=== PATIENT | male | born 1955 | race Caucasian/White ===

== ENCOUNTER 2018-10-20 14:09 | Outpatient (CLI) | payer MEDICARE ==
[2018-10-20 19:28] LABS: ALBUMIN 4.7 g/dL (3.2-5.5); ALBUMIN/GLOBULIN RATIO 1.3 (1.0-2.2); ALKALINE PHOSPHATASE 80 IU/L (42-121); ALT ALANINE AMINOTRANSFERASE 66 IU/L (10-60); AST ASPARTATE AMINOTRANSFERASE 120 IU/L (10-42); BILIRUBIN,TOTAL 1.3 mg/dL (0.2-1.0); BUN - BLOOD UREA NITROGEN 8 mg/dL (6-20); CALCIUM 9.5 mg/dL (8.5-10.3); CARBON DIOXIDE - CO2 23 mmol/L (21-32); CHLORIDE 95 mmol/L (101-111); CHOL/HDL RATIO 2.6 (<5.0); CHOLESTEROL 212 mg/dL; CREATININE 0.7 mg/dL (0.6-1.2); GFR - MDRD 113 (>89); GLUCOSE 105 mg/dL (70-100); HDL CHOLESTEROL 81 mg/dL; LDL CHOLESTEROL,CALCULATED 116 mg/dL; LDL/HDL RATIO 1.4 (<3.6); SODIUM 133 mmol/L (135-145); TOTAL PROTEIN 8.2 g/dL (6.7-8.2); VLDL CHOLESTEROL 15 mg/dL
[2018-10-20 19:46] LABS: BASOPHILS % (AUTO) 0.4 %; EOSINOPHILS % (AUTO) 0.2 %; HGB - HEMOGLOBIN 15.8 g/dL (14.0-18.0); LYMPHOCYTES # (AUTO) 1.1 10^3/uL (1.5-3.5); LYMPHOCYTES % (AUTO) 12.7 %; MEAN CORPUSCULAR HEMOGLOBIN 35.8 pg (27.0-31.0); MEAN CORPUSCULAR HGB CONC 34.3 g/dL (32.0-36.0); MEAN CORPUSCULAR VOLUME 104.1 fL (80.0-94.0); MEAN PLATELET VOLUME 11.5 fL (7.4-11.4); NEUTROPHILS # (AUTO) 6.4 10^3/uL (1.5-6.6); NEUTROPHILS % (AUTO) 74.7 %; PLT - PLATELET COUNT 122 10^3/uL (130-450); RED BLOOD COUNT 4.43 10^6/uL (4.70-6.10); RED CELL DISTRIBUTION WIDTH 13.5 % (12.0-15.0); WHITE BLOOD COUNT 8.5 x10^3/uL (4.8-10.8)
[2018-10-20 21:40] LABS: PLATELET ESTIMATE, MANUAL DECREASED (<130,000) (NORMAL); PLATELET MORPHOLOGY 1+ GIANT PLATELETS (NORMAL); RBC MORPHOLOGY (MULTIPLE) NORMAL APPEARANCE (NORMAL)
== END 2018-10-20 14:10 | disposition home or self-care (01) ==
LOC: LAB.WCP 14:09
PROVIDERS: ATTEND Family Medicine
DX: J06.9 Acute upper respiratory infection, unspecified (principal)
CPT/HCPCS: 36415; 80053; 80061; 83721; 84443; 85025; 87275; 87276

== ENCOUNTER 2019-10-02 09:23 | Outpatient (CLI) | payer MEDICARE | END 2019-10-02 09:24 | disposition critical access hospital (66) | LOC: EMS 09:23 | PROVIDERS: ATTEND Surgery | DX: S01.81XA Laceration without foreign body of other part of head, initial encounter (principal); W01.0XXA Fall on same level from slipping, tripping and stumbling without subsequent striking against object, initial encounter; Y92.524 Gas station as the place of occurrence of the external cause | CPT/HCPCS: A0425; A0429 ==

== ENCOUNTER 2019-10-02 09:48 | Emergency (ER) | payer MEDICARE ==
--- NOTE | 2019-10-02 10:04 | ED Physician Documentation ---
PD HPI Fall - Stated complaint Stated Complaint: GLF - History obtained from History obtained from: Patient - History of Present Illness Mechanism of injury: Tripped (He states he was walking over a curb and it was higher than he expected and tripped and fell forward onto his face. At home he typically has hand rails because of unsteadiness. He does not like to use a walker. He fell forward and did not have any loss of consciousness. He had a laceration on the right eyebrow. He denies other injury.) Fall distance: Standing position Where injury occurred: Street Timing - onset: Today Injury(ies) location: Face. No: Chest, Abdomen Associated symptoms: Other (Typically has unsteadiness with walking. He has also noticed swelling in his legs particularly his left leg for a couple of weeks. He has been having some feeling of abdominal distention for several weeks as well.). No: LOC, AMS, Weakness, Paresthesias Contributing factors: No: Anticoagulated Similar symptoms before: No diagnosis (Unsteadiness with gait for long-term, half a year or more) Recently seen: Not recently seen Review of Systems Constitutional: denies: Fever, Chills Nose: denies: Rhinorrhea / runny nose, Congestion Throat: denies: Sore throat Cardiac: reports: Pedal edema (both legs for months), Calf pain (left leg for 1- 2 weeks). denies: Chest pain / pressure Respiratory: reports: Dyspnea (some for months). denies: Cough GI: reports: Abdominal Pain, Abdominal Swelling (mildly for months). denies: Nausea, Vomiting, Diarrhea : denies: Dysuria Musculoskeletal: reports: Extremity swelling. denies: Neck pain, Back pain Neurologic: reports: Generalized weakness. denies: Focal weakness, Numbness, Altered mental status, Headache PD PAST MEDICAL HISTORY - Past Medical History Cardiovascular: None Respiratory: None Neuro: None Endocrine/Autoimmune: None - Past Surgical History Past Surgical History: No - Present Medications Home Medications: Ambulatory Orders Medication Instructions Recorded Confirmed Rivaroxaban [Xarelto] 15 mg PO BID #42 tablet 10/02/19 Spironolactone 25 mg PO DAILY #20 tablet 10/02/19 - Allergies Allergies/Adverse Reactions: Allergies Allergy/AdvReac Type Severity Reaction Status Date / Time No Known Drug Allergies Allergy Verified 10/02/19 10:02 - Living Situation Living Situation: reports: With spouse/s.o. Living Arrangement: reports: At home - Social History Does the pt smoke?: Yes Does the pt drink ETOH?: Yes ETOH Use: Beer (He drinks regularly at least 4-6 drinks per day. He states he does get a little shaky if he goes too late in the afternoon without anything to drink. He has not had any alcohol treatments.), Liquor Does the pt have substance abuse?: No - Family History Family history: reports: DM PD ED PE NORMAL - Vitals Vital signs reviewed: Yes - General General: Alert and oriented X 3, No acute distress, Well developed/nourished - HEENT HEENT: PERRL, EOMI, Pharynx benign, Dentition benign, Other (nonicteric). No: Atraumatic (The right supraorbital area has a 2 cm laceration full-thickness through the skin down to the fatty tissue with slightly irregular edges and no foreign body. There is no bleeding at this time.) - Neck Neck: Supple, no meningeal sign, No bony TTP (Cleared clinically by Nexus criteria.), No adenopathy - Cardiac Cardiac: RRR, No murmur - Respiratory Respiratory: Clear bilaterally - Abdomen Abdomen: Soft, Other (There is some liver enlargement by palpation. Is not tender. There is no abdominal tenderness. There is some mild distention with shifting dullness consistent with likely ascites. There is no hernia noted.). No: Normal bowel sounds (diminished) - Derm Derm: Normal color, Warm and dry - Extremities Extremities: Other (The right lower leg has a 1+ edema around the ankles in the pretibial area with good capillary refill but slightly cool color or temperature. Dorsalis pedis pulses palpable. The left leg shows moderate edema 2+ pitting with slight mottling color but still palpable dorsalis pedis pulse and capillary refill in the toes. The temperature is comfortably cool to the right. There is calf tenderness on the left and some in the popliteal area.) - Neuro Neuro: Alert and oriented X 3, fleece tier 2-12 intact, No motor deficit, No sensory deficit, Normal speech Eye Opening: Spontaneous Motor: Obeys Commands Verbal: Oriented GCS Score: 15 Results - Vitals Vitals: Vital Signs - 24 hr 10/02/19 10/02/19 09:55 13:25 Temperature 36.6 C 36.3 C L Heart Rate 94 103 H Respiratory 20 18 Rate Blood Pressure 135/92 H 133/92 H O2 Saturation 96 96 Oxygen O2 Source Room air - Labs Labs: Laboratory Tests 10/02/19 10/02/19 10/02/19 10:25 10:25 10:25 WBC 9.5 RBC 4.23 L Hgb 15.4 Hct 44.9 MCV 106.1 H MCH 36.4 H MCHC 34.3 RDW 12.2 Plt Count 182 MPV 11.6 H Neut # (Auto) 7.3 H Lymph # (Auto) 0.8 L Scott # (Auto) 1.1 H Eos # (Auto) 0.2 Baso # (Auto) 0.0 Absolute Nucleated RBC 0.00 Nucleated RBC % 0.0 D-Dimer > 1050.0 H Sodium 135 Potassium 4.9 Chloride 95 L Carbon Dioxide 24 Anion Gap 16.0 H BUN 6 Creatinine 0.8 Estimated GFR (MDRD) 97 Glucose 124 H Calcium 8.7 Magnesium 1.7 Total Bilirubin 2.5 H AST 71 H ALT 27 Alkaline Phosphatase 132 H B-Natriuretic Peptide Total Protein 7.3 Albumin 2.7 L Globulin 4.6 H Albumin/Globulin Ratio 0.6 L Lipase 33 TSH 10/02/19 10/02/19 10:25 10:25 WBC RBC Hgb Hct MCV MCH MCHC RDW Plt Count MPV Neut # (Auto) Lymph # (Auto) Scott # (Auto) Eos # (Auto) Baso # (Auto) Absolute Nucleated RBC Nucleated RBC % D-Dimer Sodium Potassium Chloride Carbon Dioxide Anion Gap BUN Creatinine Estimated GFR (MDRD) Glucose Calcium Magnesium Total Bilirubin AST ALT Alkaline Phosphatase B-Natriuretic Peptide 64 Total Protein Albumin Globulin Albumin/Globulin Ratio Lipase TSH 6.08 H - Rads (name of study) abd U/S Radiology: Prelim report reviewed (Enlarged liver with cirrhosis. Gallbladder is normal without any stones in the common bile duct is normal size. There is some ascites noted in the abdomen.), See rad report duplex both legs Radiology: Prelim report reviewed, Discussed with rads (The right leg has good flow. The left leg has clot in the deep veins from the thigh on down.), See rad report Procedures - Laceration (location) right eyebrow/forehead Length in cm: 2 Wound type: Linear, Into subcut fat, Clean Neurovascular status: Sensory intact, Motor intact Anesthesia: LET Wound Preparation: Irrigated copiously NS, Wound explored, To the base. No: FB identified Skin layer closure: Running, Size #-0 - enter number (5), Sutures - enter # (8) Other: Patient tolerated well, No complications, Dressing applied, Tetanus UTD Complexity: Simple PD MEDICAL DECISION MAKING - ED course Complexity details: considered differential (It is described as a mechanical fall and clinically appears so. He has a laceration above the right eyebrow which I sutured. However of concern was his comments of leg edema and on clinical exam some left leg in particular edematous with some calf tenderness. Concern for DVT versus dependent edema versus CHF or liver disease. He does have some ascites and seems he has a good history of alcohol use so my thought would be cirrhosis and liver disease. This is previously undiagnosed apparent ly. He does have some elevation of liver enzymes and so an ultrasound of the gallbladder and bile duct was done to ensure not a obstructive process. This did not show any gallbladder or bile duct problem. The patient is feeling well and does feel that he is able to go home. I do not see a indication for hospitalization necessarily. He has not been to his primary care for a while but I encouraged him to do so. His brother is here to pick him up and will encourage the patient as well to follow-up and pass that information to the patient's .), d/w patient Departure - Departure Disposition: 01 Home, Self Care Clinical Impression: Leg edema, Elevated liver function tests Fall from slip, trip, or stumble Qualifiers: Encounter type: initial encounter Qualified Code(s): W01.0XXA - Fall on same level from slipping, tripping and stumbling without subsequent striking against object, initial encounter Forehead laceration Qualifiers: Encounter type: initial encounter Qualified Code(s): S01.81XA - Laceration without foreign body of other part of head, initial encounter Condition: Stable Record reviewed to determine appropriate education?: Yes Instructions: ED Cirrhosis Liver, ED DVT, ED Laceration Facial Sutr Tape Follow-Up: [facility] [Provider Group] [facility] [Provider Group] Prescriptions: Rivaroxaban [Xarelto] 15 mg PO BID #42 tablet Spironolactone 25 mg PO DAILY #20 tablet Comments: It is okay to wash and shower. Clean off the wound twice a day with soap and water, or peroxide and water. Apply some antibiotic ointment to it to keep it moist. Also to watch for signs of infection such as purulence, redness or increasing pain. Return to your primary care or the ER at the specified time for suture removal. Suture removal 8 to 10 days. You do have an elevation of your liver enzymes though there is no obvious gallstones or gallbladder problems. The ultrasound does show cirrhosis of the liver and some fluid in the abdomen. This would be most likely related to regular alcohol use. Try to reduce the amount of alcohol use and preferably eliminate it slowly. The cirrhosis can lead to fluid in the abdomen and the legs. Your ultrasound a lso shows a blood clot in the veins of the left leg, and this needs to be treated with a blood thinner. A common one is called Xarelto, which I wrote a prescription for. Treat the fluid in your abdomen and legs with a mild diuretic called spironolactone daily to try to improve the swelling. You really need to have a primary care physician so call one of the clinic names I provided and set up a appointment for follow-up. You could try to time it in conjunction with the suture removal. Discharge Date/Time: 10/02/19 14:25
[2019-10-02] MEDS ORDERED: IBUPROFEN 600 MG TABLET PO STA (10:05)
[2019-10-02] MEDS ORDERED: LIDOCAINE-EPINEPH-TETRACAINE 3 ML SYRINGE TOP STA (10:05)
[2019-10-02] MEDS ORDERED: TETANUS/DIPHTHERIA/PERTUSSIS 0.5 ML SYRINGE IM ONE (10:06)
[2019-10-02 10:33] LABS: BASOPHILS % (AUTO) 0.3 %; EOSINOPHILS # (AUTO) 0.2 10^3/uL (0.0-0.7); HGB - HEMOGLOBIN 15.4 g/dL (14.0-18.0); LYMPHOCYTES # (AUTO) 0.8 10^3/uL (1.5-3.5); LYMPHOCYTES % (AUTO) 8.6 %; MEAN CORPUSCULAR HEMOGLOBIN 36.4 pg (27.0-31.0); MEAN CORPUSCULAR HGB CONC 34.3 g/dL (32.0-36.0); MEAN CORPUSCULAR VOLUME 106.1 fL (80.0-94.0); MEAN PLATELET VOLUME 11.6 fL (7.4-11.4); MONOCYTES # (AUTO) 1.1 10^3/uL (0.0-1.0); MONOCYTES % (AUTO) 11.9 %; NEUTROPHILS # (AUTO) 7.3 10^3/uL (1.5-6.6); NEUTROPHILS % (AUTO) 76.8 %; PLT - PLATELET COUNT 182 10^3/uL (130-450); RED BLOOD COUNT 4.23 10^6/uL (4.70-6.10); RED CELL DISTRIBUTION WIDTH 12.2 % (12.0-15.0); WHITE BLOOD COUNT 9.5 x10^3/uL (4.8-10.8)
[2019-10-02 10:45] LABS: ALBUMIN 2.7 g/dL (3.2-5.5); ALBUMIN/GLOBULIN RATIO 0.6 (1.0-2.2); BILIRUBIN,TOTAL 2.5 mg/dL (0.2-1.0); CALCIUM 8.7 mg/dL (8.5-10.3); CREATININE 0.8 mg/dL (0.6-1.2); MAGNESIUM 1.7 mg/dL (1.7-2.8); TOTAL PROTEIN 7.3 g/dL (6.7-8.2)
--- NOTE | 2019-10-02 13:19 | Ultrasound Report ---
Reason: elevated bilirubin/LFTs Procedure Date: 10/02/2019 Accession Number: [id number] / [id number] Procedure: US - Abdomen Limited CPT Code: Final Report FULL RESULT: EXAM: ABDOMEN ULTRASOUND LIMITED, RUQ EXAM DATE: 10/02/2019 12:00 PM. CLINICAL HISTORY: Elevated bilirubin/LFTs. COMPARISON: None. TECHNIQUE: Real-time scanning was performed with static images obtained. FINDINGS: Liver: Diffusely echogenic liver with nodular contour, compatible with cirrhotic morphology. Right liver lobe measured 14.4 cm. No focal liver lesion demonstrated. Main portal vein flow: Hepatopetal. Gallbladder: Normal. No stones, wall thickening, or sonographic Jenkins's sign. Biliary System: CBD measures 4 mm. No intrahepatic or extrahepatic ductal dilatation. Other: Right kidney measured 9.9 cm longitudinally and showed no evidence for hydronephrosis. The pancreas is obscured by overlying bowel gas. IVC was not well seen due to overlying bowel gas. Ascites is noted in all 4 abdominal quadrants. IMPRESSION: 1. No cholelithiasis or cholecystitis. 2. Cirrhotic liver. 3. At least moderate ascites. RADIA
[2019-10-02 13:26] VITALS: BP 133/92
--- NOTE | 2019-10-02 13:35 | Ultrasound Report ---
Reason: bilat leg edema for week Procedure Date: 10/02/2019 Accession Number: [id number] / [id number] Procedure: US - Duplex Ext Veins Bilateral CPT Code: Final Report FULL RESULT: EXAM: BILATERAL LOWER EXTREMITY VENOUS ULTRASOUND EXAM DATE: 10/02/2019 12:48 PM. CLINICAL HISTORY: Bilateral leg edema for a week. COMPARISON: None. TECHNIQUE: Real-time sonographic vascular imaging was performed by the environmental intern through the lower extremities utilizing both color-flow and Doppler spectral analysis. Multiple housing management representative static images were saved for review. FINDINGS: Right: Common Femoral Vein (CFV): Normal. CFV-GSV Junction: Normal. Profunda Femoral Vein (PFV): Normal. Femoral Vein (FV) Prox: Partially occlusive thrombus noted. Femoral Vein (FV) Mid: Normal. Femoral Vein (FV) Dist: Normal. Popliteal Vein: Normal. Posterior Tibial Veins: Normal. Peroneal Veins: Normal. Left: Common Femoral Vein (CFV): Normal. CFV-GSV Junction: Normal. Profunda Femoral Vein (PFV): Normal. Femoral Vein (FV) Prox: Partially occlusive thrombus present. Femoral Vein (FV) Mid: Occlusive thrombus present. Femoral Vein (FV) Dist: Occlusive thrombus present. Popliteal Vein: Occlusive thrombus present. Posterior Tibial Veins: Occlusive thrombus present. Peroneal Veins: Occlusive thrombus present. Other: None. IMPRESSION: 1. Extensive occlusive left lower extremity deep venous thrombosis extending from the left superficial femoral vein proximally into the left calf veins particularly the posterior tibial and peroneal veins. 2. Nonocclusive focal right proximal superficial femoral vein thrombus. RADIA The call report notification system was initiated by Dr. Tom Ho at 01:32 PM on 10/02/2019. The above call report findings were discussed with Shawn Vásquez by Dr. Tom Ho at 01:36 PM on 10/02/2019.
[2019-10-02] MEDS ORDERED: RIVAROXABAN 15 MG TABLET PO STA (14:00)
[2019-10-02] MEDS ORDERED: SPIRONOLACTONE 25 MG TABLET PO STA (14:01)
== END 2019-10-02 14:25 | disposition home or self-care (01) ==
LOC: EDUNIT# → ED 09:48
DX: S01.81XA Laceration without foreign body of other part of head, initial encounter (principal); W01.0XXA Fall on same level from slipping, tripping and stumbling without subsequent striking against object, initial encounter; Y93.01 Activity, walking, marching and hiking; Y92.524 Gas station as the place of occurrence of the external cause; Z23 Encounter for immunization; I82.412 Acute embolism and thrombosis of left femoral vein; I82.432 Acute embolism and thrombosis of left popliteal vein; I82.442 Acute embolism and thrombosis of left tibial vein; I82.452 Acute embolism and thrombosis of left peroneal vein; I82.811 Embolism and thrombosis of superficial veins of right lower extremity; K74.60 Unspecified cirrhosis of liver; R18.8 Other ascites; R26.81 Unsteadiness on feet; R53.1 Weakness
CPT/HCPCS: 12011; 36415; 76705; 80053; 83690; 83735; 83880; 84443; 85025; 85379; 90471; 90715; 93970; 99284; A9270

== ENCOUNTER 2019-10-12 11:23 | Outpatient (CLI) | payer MEDICARE ==
[2019-10-12 19:31] LABS: ALBUMIN 2.8 g/dL (3.2-5.5); BILIRUBIN,DIRECT 0.6 mg/dL (0.1-0.5); BILIRUBIN,TOTAL 1.4 mg/dL (0.2-1.0); TOTAL PROTEIN 7.4 g/dL (6.7-8.2)
[2019-10-13 12:26] LABS: HEPATITIS B SURFACE ANTIGEN NON-REACTIVE (NON-REACTIVE)
[2019-10-13 12:27] LABS: HEPATITIS C ANTIBODY NON-REACTIVE (NON-REACTIVE)
== END 2019-10-12 23:59 | disposition home or self-care (01) ==
LOC: LAB.N 11:23
PROVIDERS: ATTEND Family Medicine
DX: K74.60 Unspecified cirrhosis of liver (principal)
CPT/HCPCS: 36415; 80076; 83540; 84466; 86317; 86704; 86709; 86803; 87340

== ENCOUNTER 2019-11-07 18:51 | Outpatient (CLI) | payer MEDICARE | END 2019-11-07 18:52 | disposition short-term general hospital (02) | LOC: EMS 18:51 | PROVIDERS: ATTEND Surgery | DX: R41.82 Altered mental status, unspecified (principal); R73.09 Other abnormal glucose | CPT/HCPCS: A0425; A0427 ==